=== PATIENT | female | born 1960 | race Caucasian/White ===

== ENCOUNTER 2016-06-02 22:19 | Emergency (ER) | payer MEDICAID, OTHER ==
[~2016-06-02] VITALS: Ht 160 cm; Wt 60.8 kg
[~2016-06-02 22:19] MED LIST: FLON0.053; PROM6.257 PO; REST15CA PO; SERT-132 PO; ZITH250T PO; [UNRECOGNIZED DRUG - CODE] PO
[2016-06-02 22:22] VITALS: BP 150/87; PULSE 71; RESP 18; TEMP 99; O2SAT 98
[2016-06-02] MEDS ORDERED: SODIUM CHLOR 0.9% 1000 ML INJ 1,000 ML IV SCH (22:27)
[2016-06-02] MEDS ORDERED: SODIUM CHLORIDE 0.9% FLUSH 5 ML FLUSH IVF PRN (22:30)
[2016-06-02] MEDS ORDERED: KETOROLAC TROMETHAMINE 30 MG/ML (IVP) VIAL IVP ONE (22:30)
[2016-06-02] MEDS ORDERED: MORPHINE SULFATE 4 MG/ML INJ IV PUSH ONE (22:30)
[2016-06-02] MEDS ORDERED: ONDANSETRON HCL 4 MG/2 ML VIAL IVP ONE (22:30)
--- NOTE | 2016-06-02 22:41 | PD ---
HPI Chief Complaint: right flank pain Time Seen by Provider: 22:24 Travel History International Travel<30 days: No Contact w/Intl Traveler<30days: No Traveled to known affect area: No History of Present Illness HPI The patient is a 56-year-old female who presents emergency department for right flank pain. The patient is a 2 day history of intermittent right mid low back pain that radiates to the right flank, intermittent last several days, but worse tonight. Patient did complain of nausea and vomiting in route to the emergency Department. Patient also complains of blood in her urine, but denies any dysuria, frequency, or urgency. The patient denies any personal history of nephrolithiasis, however, states her son had similar symptoms with his kidney stones. The patient does note a previous history of hysterectomy and appendectomy. The patient denies any fever, chills, or sweats. Symptoms are moderate, no known alleviating or exacerbating factors. PFSH Past Medical History High Cholesterol: Yes Diminished Hearing: No Immunizations Current: No Past Surgical History Section: Yes (X2) Gynecologic Surgery: Yes ( AND HYSTERCTOMY ) Hysterectomy: Yes Social History Alcohol Use: Yes (2 glasses wine earlier tonight ) Tobacco Use: Yes Substance Use: No Allergies-Medications (Allergen,Severity, Reaction): Coded Allergies: No Known Allergies (Verified , 03/17/14) Reported Meds & Prescriptions Reported Meds & Active Scripts Active Zofran Odt (Ondansetron Odt) 4 Mg Tab 4 Mg SL Q6HR PRN Flomax (Tamsulosin HCl) 0.4 Mg Cap 0.4 Mg PO HS [place] (Hydrocodone-Acetaminophen) 5-325 mg Tab 1 Tab PO Q6H PRN Reported Cymbalta DR (Duloxetine HCl) 20 Mg Capdr 20 Mg PO DAILY Review of Systems Except as stated in HPI: all other systems reviewed are Neg Cardiovascular: No: Chest Pain or Discomfort Respiratory: No: Shortness of Breath Gastrointestinal: Positive: Nausea, Vomiting, No: Diarrhea, Abdominal Pain Genitourinary: Positive: Hematuria, Flank Pain, No: Urgency, Frequency, Dysuria Skin: No Rash Physical Exam Narrative GENERAL: Awake, alert, nontoxic-appearing 56-year-old female who appears her stated age and is in no acute respiratory distress. SKIN: Warm and dry. HEAD: Atraumatic. Normocephalic. EYES: Mild injection bilaterally. ENT: Breath smells of alcohol. NECK: Trachea midline. No JVD. CARDIOVASCULAR: Regular rate and rhythm. No murmur appreciated. RESPIRATORY: No accessory muscle use. Clear to auscultation. Breath sounds equal bilaterally. GASTROINTESTINAL: Abdomen soft, non-tender, nondistended. No suprapubic tenderness. Back: No CVA tenderness. MUSCULOSKELETAL: No obvious deformities. No clubbing. No cyanosis. No edema. NEUROLOGICAL: Awake and alert. No obvious cranial nerve deficits. Motor grossly within normal limits. Normal speech. PSYCHIATRIC: Appropriate mood and affect; insight and judgment normal. Data Data Last Documented VS Vital Signs Date Time Temp Pulse Resp B/P Pulse Ox O2 Delivery O2 Flow Rate FiO2 06/03/16 00:48 79 17 128/70 98 06/02/16 23:45 Room Air 06/02/16 22:22 99.0 Orders Basic Metabolic Panel (Bmp) (06/02/16 22:27) Complete Blood Count With Diff (06/02/16 22:27) Urinalysis - C+S If Indicated (06/02/16 22:27) Ct Abd/Pel W/O Iv Contrast (06/02/16 22:27) Iv Access Insert/Monitor (06/02/16 22:27) Ecg Monitoring (06/02/16 22:27) Oximetry (06/02/16 22:27) Morphine Inj (Morphine Inj) (06/02/16 22:30) Ondansetron Inj (Zofran Inj) (06/02/16 22:30) Sodium Chlor 0.9% 1000 Ml Inj (Ns 1000 M (06/02/16 22:27) Sodium Chloride 0.9% Flush (Ns Flush) (06/02/16 22:30) Ketorolac Inj (Toradol Inj) (06/02/16 22:30) Alcohol (Ethanol) (06/02/16 22:27) Urine Culture (06/02/16 23:55) Labs Laboratory Tests Test 06/02/16 2 22:40 23:55 Sodium Level 143 MEQ/L Potassium Level 3.8 MEQ/L Chloride Level 109 MEQ/L Carbon Dioxide Level 21.9 MEQ/L Anion Gap 12 MEQ/L Blood Urea Nitrogen 14 MG/DL Creatinine 0.86 MG/DL Estimat Glomerular Filtration 68 ML/MIN Rate Random Glucose 96 MG/DL Calcium Level 8.7 MG/DL Ethyl Alcohol Level 36 MG/DL White Blood Count 10.5 TH/MM3 Red Blood Count 4.75 MIL/MM3 Hemoglobin 15.2 GM/DL Hematocrit 45.2 % Mean Corpuscular Volume 95.2 FL Mean Corpuscular Hemoglobin 32.0 PG Mean Corpuscular Hemoglobin 33.5 % Concent Red Cell Distribution Width 13.5 % Platelet Count 333 TH/MM3 Mean Platelet Volume 7.2 FL Neutrophils (%) (Auto) 63.6 % Lymphocytes (%) (Auto) 27.2 % Monocytes (%) (Auto) 6.3 % Eosinophils (%) (Auto) 1.9 % Basophils (%) (Auto) 1.0 % Neutrophils # (Auto) 6.6 TH/MM3 Lymphocytes # (Auto) 2.9 TH/MM3 Monocytes # (Auto) 0.7 TH/MM3 Eosinophils # (Auto) 0.2 TH/MM3 Basophils # (Auto) 0.1 TH/MM3 CBC Comment DIFF FINAL Differential Comment Urine Collection Type R Urine Color YELLOW Urine Turbidity SLIGHT Urine pH 5.0 Urine Specific [place] 1.010 Urine Protein TRACE mg/dL Urine Glucose (UA) NEG mg/dL Urine Ketones NEG mg/dL Urine Occult Blood LARGE Urine Nitrite NEG Urine Bilirubin NEG Urine Leukocyte Esterase NEG Urine RBC INNUM /hpf Urine WBC 9-14 /hpf Urine WBC Clumps OCC Urine Squamous Epithelial 3-5 /hpf Cells Urine Bacteria RARE /hpf Microscopic Urinalysis Comment CULTURE INDICATED MDM Medical Decision Making Medical Screen Exam Complete: Yes Emergency Medical Condition: Yes Medical Record Reviewed: Yes Interpretation(s) CT reveals right sided obstructive uropathy with a 6 mm x 3 mm calculus in the proximal right ureter and mild to moderate right sided hydronephrosis. Last Impressions Abdomen/Pelvis CT 06/02/162226 Signed Impressions: Service Date/Time: Thursday, June 02, 2016 22:38 - CONCLUSION: 1. Right-sided obstructive uropathy with a 6 mm x 3 mm calculus in the proximal right ureter and mild to moderate right-sided hydronephrosis. No ureteral or bladder calculi. Rylan Fung MD Laboratory Tests Test 06/02/16 06/02/16 22:40 23:55 Sodium Level 143 MEQ/L Potassium Level 3.8 MEQ/L Chloride Level 109 MEQ/L Carbon Dioxide Level 21.9 MEQ/L Anion Gap 12 MEQ/L Blood Urea Nitrogen 14 MG/DL Creatinine 0.86 MG/DL Estimat Glomerular Filtration 68 ML/MIN Rate Random Glucose 96 MG/DL Calcium Level 8.7 MG/DL Ethyl Alcohol Level 36 MG/DL White Blood Count 10.5 TH/MM3 Red Blood Count 4.75 MIL/MM3 Hemoglobin 15.2 GM/DL Hematocrit 45.2 % Mean Corpuscular Volume 95.2 FL Mean Corpuscular Hemoglobin 32.0 PG Mean Corpuscular Hemoglobin 33.5 % Concent Red Cell Distribution Width 13.5 % Platelet Count 333 TH/MM3 Mean Platelet Volume 7.2 FL Neutrophils (%) (Auto) 63.6 % Lymphocytes (%) (Auto) 27.2 % Monocytes (%) (Auto) 6.3 % Eosinophils (%) (Auto) 1.9 % Basophils (%) (Auto) 1.0 % Neutrophils # (Auto) 6.6 TH/MM3 Lymphocytes # (Auto) 2.9 TH/MM3 Monocytes # (Auto) 0.7 TH/MM3 Eosinophils # (Auto) 0.2 TH/MM3 Basophils # (Auto) 0.1 TH/MM3 CBC Comment DIFF FINAL Differential Comment Urine Collection Type R Urine Color YELLOW Urine Turbidity SLIGHT Urine pH 5.0 Urine Specific [place] 1.010 Urine Protein TRACE mg/dL Urine Glucose (UA) NEG mg/dL Urine Ketones NEG mg/dL Urine Occult Blood LARGE Urine Nitrite NEG Urine Bilirubin NEG Urine Leukocyte Esterase NEG Urine RBC INNUM /hpf Urine WBC 9-14 /hpf Urine WBC Clumps OCC Urine Squamous Epithelial 3-5 /hpf Cells Urine Bacteria RARE /hpf Microscopic Urinalysis Comment CULTURE INDICATED Differential Diagnosis Differential diagnosis includes nephrolithiasis, hydronephrosis, pyelonephritis , UTI, biliary colic, pancreatitis. Narrative Course IV was established, labs are drawn and sent, and the patient was placed on cardiac telemetry monitoring and continuous pulse oximetry monitoring. UA was sent to lab. CT of the abdomen and pelvis without contrast was ordered to evaluate for kidney stone. The patient was administered morphine, Toradol, Zofran, and IV fluids. CT is positive for 6 mm x 3 mm right kidney stone with hydronephrosis. Creatinine is normal. White count is normal. The patient was signed out to Dr. Meyer at midnight with UA results pending. The patient's pain had significantly improved upon reevaluation at 11:30 PM. Diagnosis Primary Impression: Nephrolithiasis Patient Instructions: General Instructions Additional Instructions: Follow-up with urology. Please provide the patient a copy of her lab results and CT results at discharge. Ride home. Return if symptoms worsen or progress. Strain urine. Med/Other Pt SpecificInfo: Prescription(s) given Scripts Ondansetron Odt (Zofran Odt)4 Mg Tab4 Mg SL Q6HR PRN (Nausea/Vomiting) #7 TAB Ref 0 Prov:Telly Vincent MD 06/02/16 Tamsulosin (Flomax)0.4 Mg Cap0.4 Mg PO HS #7 CAP Ref 0 Prov:Telly Vincent MD 06/02/16 Hydrocodone-Acetaminophen ([place])5-325 mg Tab1 Tab PO Q6H PRN (PAIN) #15 TAB Ref 0 Prov:Telly Vincent MD 06/02/16 Disposition: DISCHARGE HOME Condition: Stable Telly Vincent MD Jun 02, 2016 22:41
[2016-06-02 22:50] LABS: AUTOMATED NEUTROPHIL # 6.6 TH/MM3 (1.8-7.7); BASOPHIL # 0.1 TH/MM3 (0-0.2); EOSINOPHIL # 0.2 TH/MM3 (0-0.4); EOSINOPHIL % 1.9 % (0.0-4.0); HEMATOCRIT 45.2 % (35.0-46.0); HEMO FLAGS DIFF FINAL; LYMPH % 27.2 % (9.0-44.0); LYMPHOCYTE # 2.9 TH/MM3 (1.0-4.8); MEAN CELL VOLUME 95.2 FL (80.0-100.0); MEAN CORPUSCULAR HGB CONC 33.5 % (32.0-36.0); MONO % 6.3 % (0.0-8.0); NEUT % 63.6 % (16.0-70.0); PLATELET COUNT 333 TH/MM3 (150-450); RED BLOOD COUNT 4.75 MIL/MM3 (4.00-5.30); RED CELL DISTRIBUTION WIDTH 13.5 % (11.6-17.2); WHITE BLOOD COUNT 10.5 TH/MM3 (4.0-11.0)
--- NOTE | 2016-06-02 22:57 | RADHPO ---
EXAM DATE/TIME: 06/02/2016 22:38 [place] COMPARISON: No previous studies available for comparison. INDICATIONS : Right sided flank pain. ORAL CONTRAST: No oral contrast ingested. RADIATION DOSE: 9.34 CTDIvol (mGy) MEDICAL HISTORY : None SURGICAL HISTORY : section. Hysterectomy. ENCOUNTER: Initial ACUITY: 2 days PAIN SCALE: 8/10 LOCATION: Right flank TECHNIQUE: Volumetric scanning of the abdomen and pelvis was performed. Using automated exposure control and ad justment of the mA and/or kV according to patient size, radiation dose was kept as low as reasonably achievable to obtain optimal diagnostic quality images. FINDINGS: Visualized lung bases are clear. No acute findings in the visualized liver, spleen, adrenals, left ki dney or pancreas. There is a right-sided obstructive uropathy with a 6 mm x 3 mm calculus in the proximal right ureter with mild to moderate right-sided hydronephrosis and perinephric stranding. No bowel obstruction. No free air or free fluid. 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 CONCLUSION: 1. Right-sided obstructive uropathy with a 6 mm x 3 mm calculus in the proximal right ureter and mild to moderate right-sided hydronephrosis. No ureteral or bladder calculi. Rylan Fung MD on June 02, 2016 at 22:50 Board Certified Radiologist. This report was verified electronically.
[2016-06-02 22:58] LABS: POTASSIUM 3.8 MEQ/L (3.5-5.1)
[2016-06-02 23:02] LABS: BICARBONATE 21.9 MEQ/L (21.0-32.0)
[2016-06-02] MEDS ORDERED: ZOFR4TAB3 SL (23:11)
[2016-06-02] MEDS ORDERED: TAMS5CAP PO (23:11)
[2016-06-02] MEDS ORDERED: NORC5TAB PO (23:11)
[2016-06-02 23:45] VITALS: BP 131/67; PULSE 71; RESP 18; O2SAT 97
[2016-06-02 23:52] VITALS: RESP 18
[2016-06-03 00:07] LABS: BLOOD, URINE LARGE (NEG); GLUCOSE,URINE NEG (NEG); KETONE, URINE NEG (NEG); NITRITE,URINE NEG (NEG)
[2016-06-03 00:18] LABS: BACTERIA, URINE RARE /hpf; COMMENT (UR) CULTURE INDICATED; CULTURE IF INDICATED CULTURE INDICATED; METHOD OF COLLECTION R; RBC, URINE INNUM /hpf (0-3); URINE COLOR YELLOW (YELLW/STRAW)
--- NOTE | 2016-06-03 00:28 | PD ---
Physical Exam Time Seen by Provider: 00:[address] Vincent left this patient with me to check the urine before she is discharged. Data Data Last Documented VS Vital Signs Date Time Temp Pulse Resp B/P Pulse Ox O2 Delivery O2 Flow Rate FiO2 06/02/16 23:52 18 06/02/16 22:47 Room Air 06/02/16 22:22 99.0 71 150/87 98 Orders Basic Metabolic Panel (Bmp) (06/02/16 22:27) Complete Blood Count With Diff (06/02/16 22:27) Urinalysis - C+S If Indicated (06/02/16 22:27) Ct Abd/Pel W/O Iv Contrast (06/02/16 22:27) Iv Access Insert/Monitor (06/02/16 22:27) Ecg Monitoring (06/02/16 22:27) Oximetry (06/02/16 22:27) Morphine Inj (Morphine Inj) (06/02/16 22:30) Ondansetron Inj (Zofran Inj) (06/02/16 22:30) Sodium Chlor 0.9% 1000 Ml Inj (Ns 1000 M (06/02/16 22:27) Sodium Chloride 0.9% Flush (Ns Flush) (06/02/16 22:30) Ketorolac Inj (Toradol Inj) (06/02/16 22:30) Alcohol (Ethanol) (06/02/16 22:27) Urine Culture (06/02/16 23:55) Labs Laboratory Tests Test 06/02/16 06/02/16 22:40 23:55 Sodium Level 143 MEQ/L Potassium Level 3.8 MEQ/L Chloride Level 109 MEQ/L Carbon Dioxide Level 21.9 MEQ/L Anion Gap 12 MEQ/L Blood Urea Nitrogen 14 MG/DL Creatinine 0.86 MG/DL Estimat Glomerular Filtration 68 ML/MIN Rate Random Glucose 96 MG/DL Calcium Level 8.7 MG/DL Ethyl Alcohol Level 36 MG/DL White Blood Count 10.5 TH/MM3 Red Blood Count 4.75 MIL/MM3 Hemoglobin 15.2 GM/DL Hematocrit 45.2 % Mean Corpuscular Volume 95.2 FL Mean Corpuscular Hemoglobin 32.0 PG Mean Corpuscular Hemoglobin 33.5 % Concent Red Cell Distribution Width 13.5 % Platelet Count 333 TH/MM3 Mean Platelet Volume 7.2 FL Neutrophils (%) (Auto) 63.6 % Lymphocytes (%) (Auto) 27.2 % Monocytes (%) (Auto) 6.3 % Eosinophils (%) (Auto) 1.9 % Basophils (%) (Auto) 1.0 % Neutrophils # (Auto) 6.6 TH/MM3 Lymphocytes # (Auto) 2.9 TH/MM3 Monocytes # (Auto) 0.7 TH/MM3 Eosinophils # (Auto) 0.2 TH/MM3 Basophils # (Auto) 0.1 TH/MM3 CBC Comment DIFF FINAL Differential Comment Urine Collection Type R Urine Color YELLOW Urine Turbidity SLIGHT Urine pH 5.0 Urine Specific [place] 1.010 Urine Protein TRACE mg/dL Urine Glucose (UA) NEG mg/dL Urine Ketones NEG mg/dL Urine Occult Blood LARGE Urine Nitrite NEG Urine Bilirubin NEG Urine Leukocyte Esterase NEG Urine RBC INNUM /hpf Urine WBC 9-14 /hpf Urine WBC Clumps OCC Urine Squamous Epithelial 3-5 /hpf Cells Urine Bacteria RARE /hpf Microscopic Urinalysis Comment CULTURE INDICATED MDM Medical Record Reviewed: Yes Supervised Visit with STEVE: Yes Interpretation(s) The urine shows slight turbidity, large occult blood, innumerable red cells with 9-14 white cells and rare bacteria and culture is indicated. Differential Diagnosis Urinary tract infection, pyelonephritis, nephrolithiasis, pancreatitis, colitis , cholecystitis Narrative Course The patient has nephrolithiasis. She has a large amount of blood in the urine and the white cells are only 9-14. This is likely a proportional white cells that are normally and the blood. At this point we'll await a culture of the urine and we will defer antibiotics until the culture results are back. Impression: Nephrolithiasis Diagnosis Primary Impression: Nephrolithiasis Patient Instructions: General Instructions Additional Instruction: Follow-up with urology. Please provide the patient a copy of her lab results and CT results at discharge. Ride home. Return if symptoms worsen or progress. Strain urine. Med/Other Pt SpecificInfo: No Change to Meds Scripts Ondansetron Odt (Zofran Odt)4 Mg Tab4 Mg SL Q6HR PRN (Nausea/Vomiting) #7 TAB Ref 0 Prov:Telly Vincent MD 06/02/16 Tamsulosin (Flomax)0.4 Mg Cap0.4 Mg PO HS #7 CAP Ref 0 Prov:Telly Vincent MD 06/02/16 Hydrocodone-Acetaminophen ([place])5-325 mg Tab1 Tab PO Q6H PRN (PAIN) #15 TAB Ref 0 Prov:Telly Vincent MD 06/02/16 Disposition: 01 DISCHARGE HOME Condition: Stable Lion Meyer MD Jun 03, 2016 00:28
[2016-06-03 00:48] VITALS: BP 128/70
[2016-06-03] MEDS ORDERED: DULO20 PO (00:52)
== END 2016-06-03 00:54 | disposition home or self-care (01) ==
LOC: PHED 22:19
DX: N20.0 Calculus of kidney (principal); M54.5 Low back pain; E78.00 Pure hypercholesterolemia, unspecified
CPT/HCPCS: 74176; 80048; 80320; 81001; 85025; 87086; 96361; 96374; 96375; 99284; J1885; J2270; J2405; J7030